=== PATIENT | female | born 2000 | race American Indian/Alaskan Native ===

== ENCOUNTER 2018-04-29 20:57 | Outpatient (CLI) | payer OTHER, MEDICAID | END 2018-04-30 | disposition home or self-care (01) | LOC: TRG 20:57 | CPT/HCPCS: 59025; 96360 ==

== ENCOUNTER 2018-05-07 03:22 | Inpatient (IN) | payer OTHER, MEDICAID ==
[2018-05-07] MEDS ORDERED: LACTATED RINGERS 1,000 ML ONE (05:54)
[2018-05-07] MEDS ORDERED: SUBLIMAZE ONE (05:57)
[2018-05-07] MEDS ORDERED: LACTATED RINGERS 1,000 ML IV ONE (06:33)
[2018-05-07] MEDS ORDERED: SUBLIMAZE IV ONE (06:33)
[2018-05-07] MEDS ORDERED: BRETHINE SUB-Q PRN (08:31)
[2018-05-07] MEDS ORDERED: NARCAN 0.4 MG/1 ML IV PRN (08:31)
[2018-05-07] MEDS ORDERED: PHENERGAN PO PRN ×2 (08:31→16:54)
[2018-05-07] MEDS ORDERED: STADOL IV PRN (08:31)
[2018-05-07] MEDS ORDERED: BRETHINE IVP PRN (08:31)
[2018-05-07] MEDS ORDERED: ZOFRAN IV PRN ×2 (08:31→16:54)
[2018-05-07] MEDS ORDERED: MINERAL OIL PO PRN (08:31)
[2018-05-07] MEDS ORDERED: XYLOCAINE 2% INFILTRATI ONE ×2 (08:31→15:22)
[2018-05-07] MEDS ORDERED: AMPICILLIN/NS 2 GM/100 ML 2 GM/100 ML BAG IV ONE (08:37)
--- NOTE | 2018-05-07 08:42 | History and Physical Report ---
History of Present Illness Date of examination: 05/07/18 Date of admission: 05/07/18 03:40 Chief complaint: contractions History of present illness: This is a 18 yo at 39 weeks EDC 05/13/18. She c/o contractions last night and noted to be 3 cm in triage she advanced to 4cm and was admitted for labor. Past History Past Medical History: no pertinent history Past Surgical History: no surgical history Family/Genetic History: heart disease, hypertension, stroke, cancer Social history: single, smoking, alcohol abuse, prescription drug abuse - Obstetrical History Expected Date of Delivery: 05/13/18 Actual Gestation: 39 Week(s) 1 Day(s) : 1 Para: 0 Hx # Term Pregnancies: 0 Number of Pregnancies: 0 Spontaneous Abortions: 0 Induced : 0 Number of Living Children: 0 Medications and Allergies Allergies Allergy/AdvReac Type Severity Reaction Status Date / Time No Known Allergies Allergy Verified 04/29/18 21:22 Home Medications Medication Instructions Recorded Confirmed Last Taken Type Ondansetron [Zofran Odt] 4 mg PO Q8H #10 tab.rapdis 04/10/15 Unknown Rx cephALEXin [Keflex] 500 mg PO Q8HR #30 cap 04/10/15 Unknown Rx Active Meds: Active Medications Butorphanol Tartrate (Stadol) 2 mg IV Q2H PRN PRN Reason: Pain , Severe (7-10) Ephedrine Sulfate (Ephedrine Sulfate) 10 mg IV Q2M PRN PRN Reason: Hypotension Lactated Ringer's (Lactated Ringers) 1,000 mls @ 125 mls/hr IV DIRECT ZEENAT Oxytocin/Sodium Chloride (Pitocin/Ns 20 Unit/1000ml Drip) 20 units in 1,000 mls @ 125 mls/hr IV DIRECT ZEENAT Oxytocin/Sodium Chloride (Pitocin/Ns 30 Unit/500ml) 30 units in 500 mls @ 1 mls/hr IV TITR ZEENAT; Protocol Oxytocin/Sodium Chloride (Pitocin/Ns 30 Unit/500ml) 30 units in 500 mls @ 0 mls/hr IV TITR ZEENAT; Protocol Ampicillin Sodium (Polycillin/Ns 2 Gm/100 Ml) 2 gm in 100 mls @ 100 mls/hr IV ONCE ONE; Protocol Stop: 05/07/18 09:36 Lidocaine (Xylocaine 2%) 20 ml INFILTRATI ONCE ONE Stop: 05/07/18 08:32 Mineral Oil (Mineral Oil) 30 ml PO QHS PRN PRN Reason: Constipation Naloxone HCl (Narcan 0.4 Mg/1 Ml) 0.1 mg IV Q2MIN PRN PRN Reason: Res Rate </= 8 or 02 SAT < 92% Ondansetron HCl (Zofran) 4 mg IV Q8H PRN PRN Reason: Nausea And Vomiting Promethazine HCl (Phenergan) 25 mg PO Q6H PRN PRN Reason: Nausea And Vomiting Terbutaline Sulfate (Brethine) 0.25 mg SUB-Q ONCE PRN PRN Reason: Hyperstimulation/Hypertonicity Terbutaline Sulfate (Brethine) 0.25 mg IVP ONCE PRN PRN Reason: Hyperstimulation/Hypertonicity Review of Systems All systems: negative Genitourinary: contractions - Vital Signs Vital signs: Vital Signs Pulse BP 90 135/83 05/07/18 03:54 05/07/18 03:54 Temp Pulse Resp BP Pulse Ox 99.0 F 106 H 140/65 05/07/18 03:58 05/07/18 06:17 05/07/18 06:17 - Physical Exam Breasts: Positive: normal Cardiovascular: Regular rate, Normal S1 Lungs: Positive: Clear to auscultation, Normal air movement Abdomen: Positive: normal appearance, soft, normal bowel sounds. Negative: distention, tenderness, guarding Genitourinary (Female): Positive: normal external genitalia, normal perenium Vulva: both: normal Vagina: Positive: normal moisture Uterus: Positive: normal size Anus/Rectum: Positive: normal perianal skin Extremities: Positive: normal Deep Tendon Reflex Grade: Normal +2 - Obstetrical FHR: category 1 Cervical Dilatation: 4 Cervical Effacement Percentage: 80 station: -2 Uterine Contraction Pattern: Regular Uterine Tone Measurement Phase: Contraction Uterine Contraction Intensity: Moderate Results All other labs normal. Assessment and Plan A/P HD1 IUP 39 weeks Term labor IVF, labs GBS unknoen; amp initiated offer epidural expect vaginal delivery
[2018-05-07 08:57] LABS: Hematocrit 38.1 % (30.3-42.9); Hemoglobin 12.4 gm/dl (10.1-14.3); Mean Corpuscular HGB Conc 33 % (30-34); Mean Corpuscular Volume 86 fl (79-97); Platelet Count 257 K/mm3 (140-440); Red Blood Count 4.42 M/mm3 (3.65-5.03); Red Cell Distribution Width 14.7 % (13.2-15.2)
[2018-05-07] MEDS ORDERED: PITOCin/NS 30 UNIT/500ML 30 UNITS/500 ML BAG IV SCH ×2 (09:00)
[2018-05-07] MEDS ORDERED: PITOCin/NS 20 UNIT/1000ML DRIP 20 UNITS/1,000 ML BAG IV SCH (09:00)
[2018-05-07] MEDS ORDERED: LACTATED RINGERS 1,000 ML IV SCH (09:00)
[2018-05-07] MEDS ORDERED: MARCAINE 0.25% INFILTRATI ONE (09:24)
--- NOTE | 2018-05-07 09:43 | Anesthesia Consultation ---
Anesthesia Consult and Med Hx - Airway Anesthetic Teeth Evaluation: Good ROM Head & Neck: Adequate Mental/Hyoid Distance: Adequate Mallampati Class: Class II Intubation Access Assessment: Probably Good - Pulmonary Exam CTA: Yes - Cardiac Exam Cardiac Exam: RRR - Pre-Operative Health Status ASA Pre-Surgery Classification: ASA2 Proposed Anesthetic Plan: Epidural - Pulmonary Hx Smoking: No Hx Asthma: Yes (Seasonal allergies: Albuterol) SOB: No COPD: No Home Oxygen Therapy: No Hx Pneumonia: No Hx Sleep Apnea: No - Cardiovascular System Hx Hypertension: No Hx Coronary Artery Disease: No Hx Heart Attack/AMI: No Hx Angina: No Hx Percutaneous Transluminal Coronary Angioplasty (PTCA): No Hx Cardia Arrhythmia: No Hx Pacemaker: No Hx Internal Defibrillator: No Hx Valvular Heart Disease: No Hx Heart Murmur: No Hx Peripheral Vascular Disease: No - Central Nervous System Hx Neuromuscular Disorder: No Hx Seizures: No CVA: No Hx Back Pain: No Hx Psychiatric Problems: No - Gastrointestinal Hx Ulcer: No Hx Gastroesophageal Reflux Disease: No - Endocrine Hx Renal Disease: No Hx End Stage Renal Disease: No Hx Cirrhosis: No Hx Liver Disease: No Hx Insulin Dependent Diabetes: No Hx Non-Insulin Dependent Diabetes: No Hx Thyroid Disease: No Hx Hypothyroidism: No Hx Hyperthyroidism: No - Hematic Hx Anemia: Yes () Hx Sickle Cell Disease: No - Other Systems Hx Alcohol Use: No Hx Substance Use: No Hx Cancer: No
[2018-05-07] MEDS ORDERED: fentaNYL-BUPIV 2 MCG/ML-0.125% 200 MCG/100 ML BAG EPIDURAL SCH (10:00)
[2018-05-07] MEDS ORDERED: METHERGINE IM ONE (15:15)
[2018-05-07] MEDS ORDERED: XYLOCAINE MPF 2% ONE (15:20)
--- NOTE | 2018-05-07 16:08 | Procedure Note ---
OB Delivery Note - Delivery Date of Delivery: 05/07/18 Surgeon: ADAM BARRAGAN Estimated blood loss: other (600cc) - Vaginal Delivery presentation: vertex Delivery position: OA Intrapartum events: meconium (terminal) Delivery augmentation: rupture of membranes, pitocin Delivery monitor: external FHT, external uterine Route of delivery: Delivery placenta: spontaneous Delivery cord: nuchal cord (both legs) Episiotomy: none Delivery laceration: 2nd degree, vaginal side wall, other (periurethral) Delivery repair: vicryl Anesthesia: epidural Delivery comments: Patient was noted to c/c/ +1 and commenced to pushing a viable Male infant at 1505. The baby deliverd easily. Nuchal around the legs. The placenta delivered intact with 3 vessel cord at 1510 intact stained with terminal meconium. The apgars were 8 and 9. Weight of baby 7 pounds 3 oz. 2nd degree lacs noted. Repaired in normal usual fashion with 2-0 vicryl. Left vaginal sidewall repaired with 3-o running. figure of eight used to repair right periurethral lac. Patient tolerated procedure well. EBl 600 cc. Methergine 0.2mg IM x1 given Patient bonded with baby. - Infant A at 1 minute: 8 at 5 minutes: 9 Infant Gender: Male (7 pounds 3 oz)
[2018-05-07] MEDS ORDERED: LANSINOH TP PRN (16:54)
[2018-05-07] MEDS ORDERED: TORADOL IV PRN (16:54)
[2018-05-07] MEDS ORDERED: TYLENOL PO PRN (16:54)
[2018-05-07] MEDS ORDERED: PERCOCET 5/325 PO PRN (16:54)
[2018-05-07] MEDS ORDERED: TUCKS PAD TP PRN (16:54)
[2018-05-07] MEDS ORDERED: MILK OF MAGNESIA PO PRN (16:54)
[2018-05-07] MEDS ORDERED: DULCOLAX PR PRN (16:54)
[2018-05-07] MEDS ORDERED: PHENERGAN PR PRN (16:54)
[2018-05-07] MEDS ORDERED: BENADRYL PO PRN (16:54)
[2018-05-07] MEDS ORDERED: SODIUM CHLORIDE FLUSH SYRINGE 10 ML IV SCH (17:00)
[2018-05-07] MEDS ORDERED: GENTAMICIN/NS 80 MG/100 ML 100 ML IV SCH (20:00)
[2018-05-07] MEDS: IBUPROFEN PO SCH (21:14)
[2018-05-07] MEDS: AMPICILLIN/NS 2 GM/100 ML 2 GM/100 ML BAG IV SCH (21:15)
[2018-05-07] MEDS: COLACE PO SCH (21:16)
[2018-05-08] MEDS: AMPICILLIN/NS 2 GM/100 ML 2 GM/100 ML BAG IV SCH ×3 (01:28→05:30)
[2018-05-08] MEDS ORDERED: LACTATED RINGERS 1,000 ML IV SCH (04:14)
[2018-05-08] MEDS: IBUPROFEN PO SCH ×4 (05:11→18:43)
[2018-05-08 07:00] LABS: Hematocrit 31.3 % (30.3-42.9); Hemoglobin 10.4 gm/dl (10.1-14.3)
[2018-05-08] MEDS ORDERED: GENTAMICIN/NS 80 MG/100 ML 100 ML IV SCH (08:00)
--- NOTE | 2018-05-08 08:37 | Progress Note ---
Assessment and Plan - Patient Problems (1) Vaginal delivery Current Visit: Yes Status: Acute Plan to address problem: patient doing well routine care discontinue antibiotics Subjective - Subjective Date of service: 05/08/18 Interval history: Patient reports swelling in hand with IV site. She is currently afebrile. States pain is well controlled. Patient reports: appetite normal, voiding normally, dizzy ambulation [place]: doing well Objective - Vital Signs Latest vital signs: Vital Signs Temp Pulse Resp BP BP Pulse Ox 05/08/18 05:41 85 18 109/69 99 05/08/18 05:40 98.1 F 05/08/18 01:17 98.4 F 18 97/65 05/07/18 21:52 98.1 F 96 H 20 125/72 98 05/07/18 18:00 100.1 F H 119 H 20 117/70 05/07/18 16:52 122 H 133/62 05/07/18 16:37 120 H 135/63 05/07/18 16:22 130 H 128/62 05/07/18 16:07 120 H 130/64 05/07/18 15:53 99.8 F H 16 05/07/18 15:52 131 H 130/69 05/07/18 15:37 125 H 135/62 05/07/18 15:22 131 H 139/60 05/07/18 15:08 133 H 130/71 05/07/18 15:07 137 H 133/68 05/07/18 14:50 155 H 150/63 05/07/18 14:48 127 H 134/57 05/07/18 14:46 125 H 143/66 05/07/18 14:42 151 H 175/109 05/07/18 14:40 127 H 123/64 05/07/18 14:39 124 H 100 05/07/18 14:38 122 H 133/60 05/07/18 14:34 139 H 98 05/07/18 14:32 126 H 134/58 05/07/18 14:30 146 H 136/64 05/07/18 14:29 124 H 100 05/07/18 14:28 122 H 133/63 05/07/18 14:26 117 H 134/61 05/07/18 14:25 125 H 156/72 05/07/18 14:24 133 H 100 05/07/18 14:22 131 H 132/67 05/07/18 14:20 121 H 129/73 05/07/18 14:19 120 H 100 05/07/18 14:18 127 H 131/65 05/07/18 14:16 121 H 121/62 05/07/18 14:14 114 H 127/63 05/07/18 14:12 112 H 125/61 05/07/18 14:10 117 H 124/67 05/07/18 14:08 116 H 124/68 05/07/18 14:06 109 H 125/64 05/07/18 14:04 112 H 124/69 05/07/18 14:02 115 H 116/67 05/07/18 14:00 120 H 132/75 05/07/18 13:58 116 H 133/63 05/07/18 13:56 131 H 127/58 05/07/18 13:54 131 H 127/71 05/07/18 13:52 116 H 125/60 99 05/07/18 13:50 115 H 127/59 05/07/18 13:48 116 H 127/63 05/07/18 13:47 126 H 99 05/07/18 13:46 122/64 05/07/18 13:44 116 H 127/65 05/07/18 13:42 123 H 106/53 100 05/07/18 13:40 113 H 103/51 05/07/18 13:38 113 H 103/51 05/07/18 13:37 113 H 99 05/07/18 13:36 108 H 108/55 05/07/18 13:34 107 H 110/52 05/07/18 13:32 111 H 106/53 99 05/07/18 13:30 110 H 108/51 05/07/18 13:28 107 H 108/51 05/07/18 13:27 116 H 100 05/07/18 13:26 106 H 106/51 05/07/18 13:24 114 H 101/50 05/07/18 13:22 105 H 106/55 100 05/07/18 13:20 108 H 106/51 05/07/18 13:18 109 H 105/51 05/07/18 13:17 109 H 100 05/07/18 13:16 107 H 111/56 05/07/18 13:14 107 H 113/55 05/07/18 13:12 119 H 111/53 100 05/07/18 13:10 111 H 110/51 05/07/18 13:08 115 H 109/50 05/07/18 13:07 105 H 100 05/07/18 13:06 108 H 114/57 05/07/18 13:04 112 H 115/55 05/07/18 13:02 123 H 117/56 100 05/07/18 13:00 106 H 126/62 05/07/18 12:58 118 H 120/59 05/07/18 12:57 112 H 100 05/07/18 12:56 121 H 126/58 05/07/18 12:54 113 H 126/57 05/07/18 12:52 111 H 130/59 100 05/07/18 12:50 108 H 126/57 05/07/18 12:48 102 H 130/60 05/07/18 12:47 113 H 100 05/07/18 12:46 108 H 126/56 05/07/18 12:44 114 H 125/60 05/07/18 12:42 111 H 127/58 100 05/07/18 12:40 112 H 123/56 05/07/18 12:38 105 H 129/58 05/07/18 12:37 113 H 100 05/07/18 12:36 105 H 129/65 05/07/18 12:34 108 H 123/59 05/07/18 12:32 109 H 129/60 100 05/07/18 12:30 106 H 124/58 05/07/18 12:28 102 H 127/60 05/07/18 12:27 102 H 100 05/07/18 12:26 100 H 128/62 05/07/18 12:24 110 H 122/59 05/07/18 12:22 103 H 124/60 100 05/07/18 12:20 101 H 127/63 05/07/18 12:18 107 H 120/62 05/07/18 12:17 108 H 100 05/07/18 12:16 108 H 127/61 05/07/18 12:14 112 H 124/59 05/07/18 12:12 104 H 123/63 100 05/07/18 12:10 110 H 134/64 05/07/18 12:08 112 H 129/60 05/07/18 12:07 118 H 100 05/07/18 12:06 115 H 128/62 05/07/18 12:04 118 H 127/59 05/07/18 12:02 126 H 121/55 100 05/07/18 12:00 111 H 123/59 05/07/18 11:58 113 H 121/59 05/07/18 11:57 113 H 100 05/07/18 11:56 112 H 121/56 05/07/18 11:54 104 H 122/60 05/07/18 11:52 101 H 127/58 100 05/07/18 11:50 106 H 126/58 05/07/18 11:48 109 H 122/55 05/07/18 11:47 102 H 100 05/07/18 11:46 105 H 123/60 05/07/18 11:44 108 H 122/56 05/07/18 11:42 105 H 122/58 100 05/07/18 11:40 106 H 124/58 05/07/18 11:38 100 H 128/60 05/07/18 11:37 104 H 100 05/07/18 11:36 102 H 125/60 05/07/18 11:34 107 H 119/56 05/07/18 11:32 104 H 125/61 100 05/07/18 11:30 106 H 122/59 05/07/18 11:28 107 H 125/60 05/07/18 11:27 104 H 100 05/07/18 11:26 108 H 122/56 05/07/18 11:24 109 H 122/57 05/07/18 11:22 102 H 120/56 100 05/07/18 11:20 100 H 122/56 05/07/18 11:18 102 H 119/56 05/07/18 11:17 100 H 100 05/07/18 11:16 107 H 120/56 05/07/18 11:14 102 H 118/56 05/07/18 11:12 104 H 117/56 100 05/07/18 11:10 98 H 122/59 05/07/18 11:08 99 H 123/58 05/07/18 11:07 108 H 100 05/07/18 11:06 105 H 122/57 05/07/18 11:04 105 H 122/55 05/07/18 11:02 110 H 122/58 100 05/07/18 11:00 105 H 120/58 05/07/18 10:58 107 H 119/59 05/07/18 10:57 111 H 100 05/07/18 10:56 111 H 116/58 05/07/18 10:54 114 H 105/57 05/07/18 10:52 111 H 117/56 100 05/07/18 10:50 108 H 112/53 05/07/18 10:48 114 H 120/60 05/07/18 10:47 115 H 99 05/07/18 10:46 115 H 126/65 05/07/18 10:44 117 H 121/60 05/07/18 10:42 118 H 116/57 99 05/07/18 10:40 112 H 122/64 05/07/18 10:38 118 H 126/62 05/07/18 10:37 115 H 98 05/07/18 10:36 109 H 126/65 05/07/18 10:34 113 H 128/65 05/07/18 10:32 122 H 121/61 99 05/07/18 10:30 110 H 122/58 05/07/18 10:28 114 H 129/64 05/07/18 10:27 112 H 99 05/07/18 10:26 109 H 128/60 05/07/18 10:24 111 H 126/61 05/07/18 10:22 116 H 122/60 99 05/07/18 10:20 113 H 123/61 05/07/18 10:19 115 H 124/62 05/07/18 10:17 106 H 98 05/07/18 10:12 116 H 118/53 99 05/07/18 10:10 105 H 136/60 05/07/18 10:08 112 H 121/56 05/07/18 10:07 111 H 99 05/07/18 10:06 107 H 137/60 05/07/18 10:04 113 H 139/57 05/07/18 10:03 108 H 137/58 05/07/18 10:02 108 H 98 05/07/18 10:00 113 H 120/59 05/07/18 09:58 111 H 121/58 05/07/18 09:57 108 H 99 05/07/18 09:56 111 H 125/58 05/07/18 09:52 119 H 97 05/07/18 09:50 118 H 137/59 05/07/18 09:48 121 H 127/56 05/07/18 09:47 115 H 99 05/07/18 09:46 122 H 168/70 05/07/18 09:45 123 H 168/72 05/07/18 09:42 126 H 124/85 96 05/07/18 09:40 114 H 118/70 05/07/18 09:38 108 H 138/69 05/07/18 09:37 113 H 97 05/07/18 09:36 110 H 137/73 05/07/18 09:34 105 H 142/73 05/07/18 09:32 113 H 155/79 05/07/18 09:30 111 H 143/87 05/07/18 09:24 109 H 18 99 05/07/18 09:19 111 H 99 05/07/18 09:14 107 H 100 Intake and Output 05/07/18 05/08/18 05/08/18 22:59 06:59 14:59 Intake Total 340 540 Output Total 1000 Balance 340 -460 Intake: IV 100 100 POLYCILLIN/NS 2 GM/100 ML 100 100 2 gm In 100 ml @ 100 mls /hr IV Q4HR [facility] Rx#: [id number] Oral 240 440 Output: Urine 1000 Void 1000 Other: Total, Intake Amount 240 120 Total, Output Amount 500 Estimated Blood Loss 600 - Exam Uterus: Present: normal, firm - Labs Labs: Abnormal lab results 05/07/18 Range/Units 06:30 WBC 18.1 H (4.5-11.0) K/mm3
--- NOTE | 2018-05-08 08:40 | Discharge Summary ---
Providers - Providers Date of Admission: 05/07/18 03:40 Date of discharge: 05/09/18 Attending physician: ADAM BARRAGAN MD Primary care physician: ADAM BARRAGAN MD Hospitalization Reason for admission: active labor Delivery: Discharge diagnosis: IUP at term delivered [place] baby: male Hospital course: Patient admitted in labor. Had a . Mild temp spike during labor with foul fluid. Patient initiated on iv abx. uncomplicated Condition at discharge: Good Disposition: DC-01 TO HOME OR SELFCARE - Discharge Diagnoses (1) Vaginal delivery Status: Acute Plan - Discharge Medications Prescriptions: Ferrous Sulfate 325 mg PO BID #60 tablet. HYDROcodone/APAP 5-325 [[place] 5/325] 1 each PO Q6HR PRN #20 tablet PRN Reason: Pain Ibuprofen [Motrin] 600 mg PO Q8H PRN #30 tablet PRN Reason: Pain Ibuprofen [Motrin] 800 mg PO Q8HR PRN #60 tablet PRN Reason: Pain, Mild (1-3) oxyCODONE /ACETAMINOPHEN [Percocet 5/325] 1 tab PO Q6HR PRN #30 tablet PRN Reason: Pain - Provider Discharge Summary Activity: no sex for 6 weeks, no heavy lifting 4 weeks, no strenuous exercise Diet: routine Instructions: routine Additional instructions: [] Smoking cessation referral if applicable(refer to patient education folder for contact #) [] Refer to [facility] Booklet Call your doctor immediately for: * Fever > 100.5 * Heavy vaginal bleeding ( >1 pad per hour) * Severe persistent headache * Shortness of breath * Reddened, hot, painful area to leg or breast * schedule visit in 4 weeks - Follow up plan
[2018-05-08] MEDS ORDERED: DERMOPLAST TP PRN (09:03)
[2018-05-08] MEDS ORDERED: DERMOPLAST TP ONE (09:04)
[2018-05-08] MEDS: COLACE PO SCH ×2 (10:31→21:44)
[2018-05-08] MEDS: PRENATAL VITAMIN PO SCH (10:31)
[2018-05-08] MEDS: NORCO 5/325 PO PRN (21:44)
[2018-05-09] MEDS ORDERED: BOOSTRIX IM ONE (03:45)
[2018-05-09] MEDS: IBUPROFEN PO SCH ×2 (03:46→11:08)
[2018-05-09] MEDS: NORCO 5/325 PO PRN (05:48)
[2018-05-09 09:41] VITALS: BP 110/63
[2018-05-09] MEDS: COLACE PO SCH (11:07)
[2018-05-09] MEDS: PRENATAL VITAMIN PO SCH (11:07)
== END 2018-05-09 16:00 | disposition home or self-care (01) | DRG 806 ==
LOC: TRG 03:22 → LD 03:40 → OB 17:28
PROVIDERS: ADMIT Obstetrics & Gynecology; ATTEND Obstetrics & Gynecology
PROC: 10E0XZZ Delivery of Products of Conception, External Approach (ICD-10-PCS; principal; 2018-05-07)
PROC: 0KQM0ZZ Repair Perineum Muscle, Open Approach (ICD-10-PCS; 2018-05-07)
PROC: 00HU33Z Insertion of Infusion Device into Spinal Canal, Percutaneous Approach (ICD-10-PCS; 2018-05-07)
PROC: 3E0R3BZ Introduction of Anesthetic Agent into Spinal Canal, Percutaneous Approach (ICD-10-PCS; 2018-05-07)
PROC: 0UQMXZZ Repair Vulva, External Approach (ICD-10-PCS; 2018-05-07)
DX: O77.0 Labor and delivery complicated by meconium in amniotic fluid (principal); O99.324 Drug use complicating childbirth; Z37.0 Single live birth; Z3A.39 39 weeks gestation of pregnancy; Z82.49 Family history of ischemic heart disease and other diseases of the circulatory system; Z80.9 Family history of malignant neoplasm, unspecified; Z82.3 Family history of stroke; F17.200 Nicotine dependence, unspecified, uncomplicated; O99.334 Smoking (tobacco) complicating childbirth; O99.314 Alcohol use complicating childbirth; F19.10 Other psychoactive substance abuse, uncomplicated; O99.52 Diseases of the respiratory system complicating childbirth; F10.10 Alcohol abuse, uncomplicated; Y90.9 Presence of alcohol in blood, level not specified; J45.909 Unspecified asthma, uncomplicated; O71.82 Other specified trauma to perineum and vulva; O70.1 Second degree perineal laceration during delivery
CPT/HCPCS: 36415; 85014; 85018; 85027; 86592; 86850; 86900; 86901; 88307; 90471; 90715; G0378; A6250; J0290; J1580; J1885; J2210; J2405; J2590; J3010; J7120

== ENCOUNTER 2018-05-29 21:09 | Emergency (ER) | payer OTHER, MEDICAID ==
[2018-05-30] MEDS ORDERED: NACL 0.9% 1000 ML 1,000 ML IV ONE (00:58)
[2018-05-30 01:23] LABS: Basophils % (Auto) 0.8 % (0.0-1.8); Eosinophils # (Auto) 0.1 K/mm3 (0.0-0.4); Eosinophils % (Auto) 2.6 % (0.0-4.3); Hemoglobin 13.5 gm/dl (10.1-14.3); Lymphocytes # (Auto) 2.3 K/mm3 (1.2-5.4); Lymphocytes % (Auto) 39.5 % (13.4-35.0); Mean Corpuscular HGB Conc 33 % (30-34); Mean Corpuscular Volume 85 fl (79-97); Monocytes # (Auto) 0.4 K/mm3 (0.0-0.8); Monocytes % (Auto) 6.1 % (0.0-7.3); Platelet Count 407 K/mm3 (140-440); Red Blood Count 4.82 M/mm3 (3.65-5.03); Red Cell Distribution Width 14.1 % (13.2-15.2)
[2018-05-30 02:09] LABS: Alanine Aminotransferase 15 units/L (7-56); Albumin 4.5 g/dL (3.9-5); BUN/Creatinine Ratio 9; Blood Urea Nitrogen 7 mg/dL (7-17); Calcium 9.8 mg/dL (8.4-10.2); Hemolysis Index 0
[2018-05-30] MEDS ORDERED: ZOFRAN IV ONE (02:39)
[2018-05-30] MEDS ORDERED: SUBLIMAZE IV ONE (02:39)
[2018-05-30] MEDS ORDERED: ZOFRAN ONE (02:43)
[2018-05-30] MEDS ORDERED: SUBLIMAZE ONE (02:43)
--- NOTE | 2018-05-30 03:00 | Emergency Department Report ---
HPI - General Chief Complaint: Abdominal Pain Time Seen by Provider: 05/30/18 02:46 - HPI HPI: Room 20 The patient is a 18-year-old female presenting with a chief complaint of abdominal pain and chest pain. Patient states she is approximately 3 weeks po stpartum vaginal delivery (not breast-feeding). The patient states for 1 day she has had intermittent periumbilical abdominal pain described as sharp in nature. The patient states sometimes the pain radiates to her chest when it becomes severe. Patient admits to occasional shortness of breath. Patient denies history of fever area patient admits to nausea but denies vomiting. Patient states her pain was approximate 6-10/10 prior to arrival. Patient is pain free now after being administered analgesics. Location: Abdomen, chest Duration: [See above] Quality: Sharp Severity: [See above] Modifying factors: [see above] Context: [see above] Mode of transportation: [not driving] ED Past Medical Hx - Past Medical History Previous Medical History?: Yes Hx Asthma: Yes (Seasonal allergies: Albuterol) Additional medical history: Pnuemonia - Surgical History Additional Surgical History: tonsilectomy - Family History Family history: no significant - Social History Smoking Status: Never Smoker Substance Use Type: None (denies illicit drug use) - Medications Home Medications: Home Medications Medication Instructions Recorded Confirmed Last Taken Type Ondansetron [Zofran Odt] 4 mg PO Q8H #10 tab.rapdis 04/10/15 05/07/18 Unknown Rx cephALEXin [Keflex] 500 mg PO Q8HR #30 cap 04/10/15 05/07/18 Unknown Rx Ferrous Sulfate 325 mg PO BID #60 tablet. 05/07/18 Unknown Rx Ibuprofen [Motrin] 600 mg PO Q8H PRN #30 tablet 05/07/18 Unknown Rx oxyCODONE /ACETAMINOPHEN [Percocet 1 tab PO Q6HR PRN #30 tablet 05/07/18 Unknown Rx 5/325] HYDROcodone/APAP 5-325 [[place] 1 each PO Q6HR PRN #20 tablet 05/08/18 Unknown Rx 5/325] Ibuprofen [Motrin] 800 mg PO Q8HR PRN #60 tablet 05/08/18 Unknown Rx HYDROcodone/APAP 5-325 [[place] 1 - 2 each PO Q6HR PRN #10 tablet 05/30/18 Unknown Rx 5/325] levoFLOXacin [Levaquin TAB] 500 mg PO QDAY #10 tablet 05/30/18 Unknown Rx ED Review of Systems ROS: Stated complaint: ABDOMINAL PAIN Other details as noted in HPI Constitutional: denies: fever Eyes: denies: eye pain ENT: denies: throat pain Respiratory: shortness of breath Cardiovascular: chest pain Endocrine: no symptoms reported Gastrointestinal: abdominal pain, nausea. denies: vomiting Genitourinary: denies: dysuria Musculoskeletal: denies: back pain Neurological: denies: headache Physical Exam - Physical Exam Vital Signs: Vital Signs 05/29/18 05/30/18 05/30/18 22:14 00:52 02:28 Temperature 98.5 F 98.5 F 97.9 F Pulse Rate 71 70 71 Respiratory 18 18 16 Rate Blood Pressure 115/75 115/75 Blood Pressure 125/92 [Left] O2 Sat by Pulse 99 99 99 Oximetry 05/30/18 02:45 Temperature Pulse Rate Respiratory 16 Rate Blood Pressure Blood Pressure [Left] O2 Sat by Pulse Oximetry Physical Exam: GENERAL: The patient is well-developed well-nourished female lying on stretcher not appear to be in acute distress HEENT: Normocephalic. Atraumatic. Extraocular motions are intact. Patient has moist mucous membranes. NECK: Supple. Trachea midline CHEST/LUNGS: Clear to auscultation. There is no respiratory distress noted. HEART/CARDIOVASCULAR: Regular. There is no tachycardia. There is no gallop rub or murmur. ABDOMEN: Abdomen is soft, with mild discomfort to palpation in the midepigastric, suprapubic, right lower quadrant and right upper quadrant. There is no guarding. Patient has normal bowel sounds. There is no abdominal distention. SKIN: There is no rash. There is no edema. There is no diaphoresis. NEURO: The patient is awake, alert, and oriented. The patient is cooperative. The patient has normal speech MUSCULOSKELETAL: There is no evidence of acute injury. ED Course Vital Signs 05/29/18 05/30/18 05/30/18 22:14 00:52 02:28 Temperature 98.5 F 98.5 F 97.9 F Pulse Rate 71 70 71 Respiratory 18 18 16 Rate Blood Pressure 115/75 115/75 Blood Pressure 125/92 [Left] O2 Sat by Pulse 99 99 99 Oximetry 05/30/18 02:45 Temperature Pulse Rate Respiratory 16 Rate Blood Pressure Blood Pressure [Left] O2 Sat by Pulse Oximetry ED Medical Decision Making - Lab Data Result diagrams: 05/30/18 01:10 05/30/18 01:10 Laboratory Tests 05/30/18 05/30/18 05/30/18 01:10 01:10 01:10 WBC 5.7 RBC 4.82 Hgb 13.5 Hct 41.0 MCV 85 MCH 28 MCHC 33 RDW 14.1 Plt Count 407 Lymph % (Auto) 39.5 H [place] % (Auto) 6.1 Eos % (Auto) 2.6 Baso % (Auto) 0.8 Lymph # 2.3 [place] # 0.4 Eos # 0.1 Baso # 0.0 Seg Neutrophils % 51.0 Seg Neutrophils # 2.9 Sodium 138 Potassium 4.3 Chloride 101.7 Carbon Dioxide 26 Anion Gap 15 BUN 7 Creatinine 0.8 Estimated GFR > 60 BUN/Creatinine Ratio 9 Glucose 84 Calcium 9.8 Total Bilirubin 0.40 AST 18 ALT 15 Alkaline Phosphatase 118 Troponin T Total Protein 7.5 Albumin 4.5 Albumin/Globulin Ratio 1.5 Lipase 13 HCG, Qual Negative Urine Color Urine Turbidity Urine pH Ur Specific [place] Urine Protein Urine Glucose (UA) Urine Ketones Urine Blood Urine Nitrite Urine Bilirubin Urine Urobilinogen Ur Leukocyte Esterase Urine WBC (Auto) Urine RBC (Auto) U Epithel Cells (Auto) Ur Transition Epith Cell Urine Mucus 05/30/18 05/30/18 01:10 02:05 WBC RBC Hgb Hct MCV MCH MCHC RDW Plt Count Lymph % (Auto) [place] % (Auto) Eos % (Auto) Baso % (Auto) Lymph # [place] # Eos # Baso # Seg Neutrophils % Seg Neutrophils # Sodium Potassium Chloride Carbon Dioxide Anion Gap BUN Creatinine Estimated GFR BUN/Creatinine Ratio Glucose Calcium Total Bilirubin AST ALT Alkaline Phosphatase Troponin T < 0.010 Total Protein Albumin Albumin/Globulin Ratio Lipase HCG, Qual Urine Color Yellow Urine Turbidity Clear Urine pH 7.0 Ur Specific [place] 1.010 Urine Protein <15 mg/dl Urine Glucose (UA) Neg Urine Ketones Neg Urine Blood Neg Urine Nitrite Neg Urine Bilirubin Neg Urine Urobilinogen < 2.0 Ur Leukocyte Esterase Lg Urine WBC (Auto) 28.0 H Urine RBC (Auto) 10.0 U Epithel Cells (Auto) < 1.0 Ur Transition Epith Cell 1 Urine Mucus Few - EKG Data -: EKG Interpreted by Ks EKG shows normal: sinus rhythm Rate: normal - EKG Data When compared to previous EKG there are: previous EKG unavailable Interpretation: normal EKG - Radiology Data Radiology results: report reviewed (CT chest, CT abdomen and pelvis), image reviewed (CT abdomen and pelvis, CT chest) [address] [address] Cat Scan Report Signed Patient: AL HANSON R#: [id number] : 2000 Acct:[id number] Age/Sex: 18 / F ADM Date: 05/29/18 Loc: ED Attending Dr: Ordering Physician: JAZMINE LYLE MD Date of Service: 05/30/18 Procedure(s): CT angio chest Accession Number(s): [id number] cc: JAZMINE LYLE MD PROCEDURE: CT ANGIO CHEST TECHNIQUE: A CT angiogram was performed following the intravenous injection of iodinated contrast. Rotational, sagittal, and coronal MIP reconstructions were reviewed. HISTORY: chest pain, SOB. Recently COMPARISONS: None FINDINGS: There is no evidence of pulmonary embolus or congestion. The heart size appears normal. Pericardial fluid is not seen. The thoracic aorta appears normal. The lungs are clear. Pleural fluid is not seen. In the upper abdomen and adrenal glands appear normal. The skeletal structures are well-maintained. IMPRESSION: Normal exam. No evidence of pulmonary embolus, aortic dissection, or vascular congestion.. This document is electronically signed by Acosta Bloom MD., May 30 2018 04:33:07 AM ET Transcribed By: RB Dictated By: ACOSTA BLOOM MD Electronically Authenticated By: ACOSTA BLOOM MD Signed Date/Time: 05/30/18 0435 DD/ TD/TT: 05/30/[address] [address] Cat Scan Report Signed Patient: AL HANSON R#: [id number] : 2000 Acct:[id number] Age/Sex: 18 / F ADM Date: 05/29/18 Loc: ED Attending Dr: Ordering Physician: JAZMINE LYLE MD Date of Service: 05/30/18 Procedure(s): CT abdomen pelvis w con Accession Number(s): [id number] cc: JAZMINE LYLE MD PROCEDURE: CT ABDOMEN PELVIS W CON TECHNIQUE: Routine axial imaging was obtained of the abdomen and pelvis following the intravenous injection of IV contrast. Delayed imaging was obtained through the kidneys ureters and bladder. Sagittal and coronal reconstructions were obtained. HISTORY: epigastric and right-sided abdominal pain COMPARISONS: None FINDINGS: The lung bases are clear. Pleural fluid is not seen. The liver, gallbladder, biliary tree, pancreas, spleen, and adrenal glands appear normal. The kidneys enhance normally. There is no evidence of hydronephrosis. The celiac and superior mesenteric arteries are widely patent. The inferior mesenteric artery opacifies normally. Both renal arteries appear normal. The bowel loops are normal in caliber and course. The appendix is not seen with certainty. No definite inflammatory process is seen in the right lower quadrant. In the pelvis the uterus is enlarged compatible with status. There is a very small amount of free fluid in the cul-de-sac. There are small functional cysts in the ovaries. The skeletal structures are unremarkable. IMPRESSION: No acute process in the abdomen and pelvis. Appendix is not identified with certainty. No definite inflammatory process in the right upper quadrant. Very small amount of free fluid in the cul-de-sac. Small functional cysts in both ovaries. Enlarged uterus.. This document is electronically signed by Acosta Bloom MD., May 30 2018 04:40:13 AM ET Transcribed By: RB Dictated By: ACOSTA BLOOM MD Electronically Authenticated By: ACOSTA BLOOM MD Signed Date/Time: 05/30/18 0442 DD/ 0429 TD/TT: 05/30/18 043 - Differential Diagnosis gastritis, appendicitis, cholelithiasis, PE Critical care attestation.: If time is entered above; I have spent that time in minutes in the direct care of this critically ill patient, excluding procedure time. ED Disposition Clinical Impression: Acute abdominal pain, UTI (urinary tract infection), Atypical chest pain Disposition: - TO HOME OR SELFCARE Is pt being admited?: No Does the pt Need Aspirin: No Condition: Stable Instructions: Chest Pain (ED), Abdominal Pain (ED) Additional Instructions: Return to the emergency department immediately should you develop worsening symptoms, fever, inability to tolerate food or liquid or any other concerns. Prescriptions: levoFLOXacin [Levaquin TAB] 500 mg PO QDAY #10 tablet HYDROcodone/APAP 5-325 [[place] 5/325] 1 - 2 each PO Q6HR PRN #10 tablet PRN Reason: Pain Referrals: BHUPINDER HOPE MD [Primary Care Provider] - 3-5 Days Time of Disposition: 04:46
[2018-05-30 03:28] LABS: Bilirubin,Urine NEG (Negative); Blood,Urine NEG (Negative); Color,Urine Yellow (Yellow); Mucus,Urine FEW /HPF; Protein,Urine <15 mg/dL mg/dL (Negative); Urobilinogen,Urine < 2.0 mg/dL (<2.0)
--- NOTE | 2018-05-30 04:35 | Cat Scan Report ---
PROCEDURE: CT ANGIO CHEST TECHNIQUE: A CT angiogram was performed following the intravenous injection of iodinated contrast. R otational, sagittal, and coronal MIP reconstructions were reviewed. HISTORY: chest pain, SOB. Recently COMPARISONS: None FINDINGS: There is no evidence of pulmonary embolus or congestion. The heart size appears normal. Pericardial f luid is not seen. The thoracic aorta appears normal. The lungs are clear. Pleural fluid is not seen. In the upper abdomen and adrenal glands appear normal. The skeletal structures are well-maintained. IMPRESSION: Normal exam. No evidence of pulmonary embolus, aortic dissection, or vascular congestion.. This document is electronically signed by Scott Bloom MD., May 30 2018 04:33:07 AM ET
--- NOTE | 2018-05-30 04:42 | Cat Scan Report ---
PROCEDURE: CT ABDOMEN PELVIS W CON TECHNIQUE: Routine axial imaging was obtained of the abdomen and pelvis following the intravenous in jection of IV contrast. Delayed imaging was obtained through the kidneys ureters and bladder. Sagitta l and coronal reconstructions were obtained. HISTORY: epigastric and right-sided abdominal pain COMPARISONS: None FINDINGS: The lung bases are clear. Pleural fluid is not seen. The liver, gallbladder, biliary tree, pancreas, spleen, and adrenal glands appear normal. The kidneys enhance normally. There is no evidence of hydronephrosis. The celiac and superior mesenteric arterie s are widely patent. The inferior mesenteric artery opacifies normally. Both renal arteries appear no rmal. The bowel loops are normal in caliber and course. The appendix is not seen with certainty. No d efinite inflammatory process is seen in the right lower quadrant. In the pelvis the uterus is enlarged compatible with status. There is a very small amount of free fluid in the cul-de-sac. There are small functional cysts in the ovaries. The skeletal struct ures are unremarkable. IMPRESSION: No acute process in the abdomen and pelvis. Appendix is not identified with certainty. No definite inflammatory process in the right upper quadra nt. Very small amount of free fluid in the cul-de-sac. Small functional cysts in both ovaries. Enlarged uterus.. This document is electronically signed by Scott Bloom MD., May 30 2018 04:40:13 AM ET
[2018-05-30 05:45] VITALS: BP 127/73
== END 2018-05-30 05:39 | disposition home or self-care (01) ==
LOC: ED 21:09
DX: N39.0 Urinary tract infection, site not specified (principal); R07.89 Other chest pain; J45.909 Unspecified asthma, uncomplicated
CPT/HCPCS: 36415; 71275; 74177; 80053; 81001; 83690; 84484; 84703; 85025; 93005; 93010; 96374; 96375; 99284; J2405; J3010; Q9967